=== PATIENT | male | born 1945 | race Caucasian/White ===

== ENCOUNTER 2020-06-25 12:54 | Emergency (ER) | payer MEDICARE ==
[~2020-06-25] VITALS: Ht 172.7 cm; Wt 135.2 kg
[~2020-06-25 12:54] MED LIST: AMLODIPINE BESYL5 MG PO; AMLODIPINE10 MG; AMLODIPINE10 MG PO; ANCEF1 GM/50 ML IV; ASPIRIN81 M1; CAPTOPRIL12.5 MG PO; CAPTOPRIL50 MG; CIPRO500 MG PO; COLACE100 MG PO; COREG12.5 MG PO; COREG6.25 MG PO; HYDROCHLOROTHIA25 MG; ISOSORBIDE30 MG; LASIX40 MG PO; LOVENOX40 MG/0.4 SC; Lovenox40 MG/0.4 PO; METFORMIN HCL1000 MG; MICRO-K10 MEQ PO; OXACILLIN IV; PERCOCET 325 MG1 TA3 PO; PERCOCET 325 MG1 TA4 PO; PERCOCET 325 MG1 TA8 IV; PRAVASTATIN SOD40 MG PO; PRILOSEC20 MG PO; Rimactane,Rifa300 MG PO; XARELTO10 PO
[2020-06-25 14:11] LABS: BASO # 0.1 10*3/uL (0.0-0.1); BASO % 0.6 % (0.0-1.0); EOS # 0.2 10*3/uL (0.0-0.4); EOS % 1.5 % (1.0-4.0); HEMATOCRIT 44.4 % (42.0-52.0); LYMPH % 8.5 % (27.0-41.0); MEAN CELL VOLUME 89.5 fl (80.0-94.0); MEAN CORPUSCULAR HGB CONC 32.4 g/dl (33.0-37.0); MEAN PLATELET VOLUME 9.9 fl (9.6-12.3); MONO % 8.6 % (3.0-9.0); NEUT # 9.4 10*3/uL (2.3-7.9); NEUT % 80.3 % (47.0-73.0); PLATELET COUNT AUTOMATED 298 10*3/uL (130-400); RED BLOOD COUNT 4.96 10*6/uL (4.50-5.90); RED CELL DISTRI WIDTH 13.6 % (0-14.5); WHITE BLOOD COUNT 11.7 10*3/uL (4.8-10.8)
[2020-06-25 14:21] LABS: INTERNATIONAL NORM RATIO 1.1 (2.0-3.5)
[2020-06-25 14:27] LABS: ALBUMIN 2.8 gm/dl (3.1-4.5); CREATININE 1.91 mg/dL (0.70-1.30); POTASSIUM 4.2 mmol/L (3.5-5.1); TOTAL PROTEIN 7.3 gm/dL (6.4-8.2)
[2020-06-25 14:28] LABS: TROPONIN I 0.016 ng/ml (<0.045)
[2020-06-25] MEDS ORDERED: CLINDAMYCIN HC300 MG PO (14:48)
== END 2020-06-25 16:10 | disposition home or self-care (01) ==
LOC: ED 12:54
PROVIDERS: Physician Assistant
DX: L03.116 Cellulitis of left lower limb (principal); L03.115 Cellulitis of right lower limb; I87.2 Venous insufficiency (chronic) (peripheral); Z79.899 Other long term (current) drug therapy

== ENCOUNTER 2020-10-01 13:43 | Inpatient (IN) | payer MEDICARE ==
[~2020-10-01] VITALS: Ht 172.7 cm; Wt 138.4 kg
[~2020-10-01 13:43] MED LIST changes: +CLINDAMYCIN HC300 MG PO
[2020-10-01 13:46] VITALS: BP 140/69
[2020-10-01 14:23] LABS: BASO # 0.1 10*3/uL (0.0-0.1); BASO % 0.7 % (0.0-1.0); EOS # 0.4 10*3/uL (0.0-0.4); EOS % 3.5 % (1.0-4.0); HEMATOCRIT 38.4 % (42.0-52.0); LYMPH # 1.2 10*3/uL (1.3-4.4); MEAN CELL VOLUME 88.5 fl (80.0-94.0); MEAN CORPUSCULAR HGB 27.9 pg (27.0-31.0); MEAN CORPUSCULAR HGB CONC 31.5 g/dl (33.0-37.0); MEAN PLATELET VOLUME 9.5 fl (9.6-12.3); MONO % 9.1 % (3.0-9.0); NEUT % 75.1 % (47.0-73.0); PLATELET COUNT AUTOMATED 357 10*3/uL (130-400); RED BLOOD COUNT 4.34 10*6/uL (4.50-5.90); RED CELL DISTRI WIDTH 14.4 % (0-14.5); WHITE BLOOD COUNT 10.6 10*3/uL (4.8-10.8)
[2020-10-01 14:34] LABS: ACT PARTIAL THROMBO TIME 34.3 SECONDS (20.0-32.1); INTERNATIONAL NORM RATIO 1.1 (2.0-3.5)
[2020-10-01 14:43] LABS: ALBUMIN 2.6 gm/dl (3.1-4.5); ALKALINE PHOSPHATASE 71 U/L (45-117); BUN 64 mg/dl (7-24); CHLORIDE 109 mmol/L (98-107); CREATININE 2.34 mg/dL (0.70-1.30); LIPASE 265 U/L (73-393); POTASSIUM 5.3 mmol/L (3.5-5.1); SGOT/AST 14 IU/L (3-35); SGPT/ALT 21 U/L (12-78); SODIUM 140 mmol/L (136-145); TOTAL PROTEIN 7.8 gm/dL (6.4-8.2)
[2020-10-01 14:56] LABS: TROPONIN I < 0.015 ng/ml (<0.045)
[2020-10-01 18:49] VITALS: BP 139/82
[2020-10-01 18:50] LABS: CREATININE 2.23 mg/dL (0.70-1.30); POTASSIUM 5.1 mmol/L (3.5-5.1)
[2020-10-01 19:09] LABS: BILIRUBIN Negative (Negative); BLOOD Negative (Negative); CLARITY Clear (Clear); COLOR Yellow (Yellow); GLUCOSE Negative (Negative); KETONE Negative (Negative); LEUKO ESTERASE 1+ (Negative); NITRITE Positive (Negative); PH 5.5 (4.5-8.0); SPECIFIC GRAVITY 1.015 (1.001-1.030); UROBILINOGEN 0.2 E.U./dl (0.0-1.0)
[2020-10-01 19:54] LABS: BACTERIA 1+; RBC 0-2 rbc/hpf (0-2)
[2020-10-01 20:06] VITALS: BP 138/68
[2020-10-01 20:43] VITALS: BP 141/48
[2020-10-01] MEDS ORDERED: OMEPRAZOLE MAGN20 MG PO (23:33)
[2020-10-01] MEDS ORDERED: LOSARTAN-HCTZ1 EAC1 PO (23:33)
[2020-10-01] MEDS ORDERED: OMEGA PO (23:34)
[2020-10-01] MEDS ORDERED: AMLODIPINE BESY10 MG PO (23:34)
[2020-10-01] MEDS ORDERED: ISO D3 2,000 U1 EACH PO (23:35)
[2020-10-01] MEDS ORDERED: CRESTOR20 M1 PO (23:36)
[2020-10-01] MEDS ORDERED: SUPER B COMPLE1 EAC1 PO (23:36)
[2020-10-01] MEDS ORDERED: XARE20MG PO (23:36)
[2020-10-01] MEDS ORDERED: COREG25 MG PO (23:40)
[2020-10-01] MEDS ORDERED: PRAVACHOL40 MG PO (23:40)
[2020-10-01] MEDS ORDERED: LASIX40 MG PO (23:41)
[2020-10-01] MEDS ORDERED: KEFLEX500 M1 PO (23:41)
[2020-10-01] MEDS ORDERED: RENAL VITAMIN0.8 MG PO (23:41)
[2020-10-01] MEDS ORDERED: LISINOPRIL2.5 MG PO (23:42)
[2020-10-02] VITALS: BP 124/55
[2020-10-02 06:31] LABS: BASO # 0.1 10*3/uL (0.0-0.1); BASO % 0.4 % (0.0-1.0); EOS # 0.4 10*3/uL (0.0-0.4); EOS % 3.2 % (1.0-4.0); HEMATOCRIT 36.5 % (42.0-52.0); LYMPH # 1.1 10*3/uL (1.3-4.4); LYMPH % 9.9 % (27.0-41.0); MEAN CORPUSCULAR HGB 27.7 pg (27.0-31.0); MEAN CORPUSCULAR HGB CONC 30.4 g/dl (33.0-37.0); MEAN PLATELET VOLUME 9.5 fl (9.6-12.3); MONO # 0.9 10*3/uL (0.1-1.0); MONO % 7.7 % (3.0-9.0); NEUT # 8.7 10*3/uL (2.3-7.9); NEUT % 78.4 % (47.0-73.0); PLATELET COUNT AUTOMATED 324 10*3/uL (130-400); RED BLOOD COUNT 4.01 10*6/uL (4.50-5.90); RED CELL DISTRI WIDTH 14.5 % (0-14.5); WHITE BLOOD COUNT 11.2 10*3/uL (4.8-10.8)
[2020-10-02 06:48] LABS: ALBUMIN 2.4 gm/dl (3.1-4.5); CREATININE 2.12 mg/dL (0.70-1.30); POTASSIUM 4.9 mmol/L (3.5-5.1)
[2020-10-02 06:57] LABS: THYROID STIM HORMONE (HS) 2.27 uIU/ml (0.358-4.75); TOTAL PROTEIN 6.8 gm/dL (6.4-8.2)
[2020-10-02 08:00] VITALS: BP 145/68
[2020-10-02 12:00] VITALS: BP 125/62
[2020-10-02 16:00] VITALS: BP 152/68
[2020-10-02 20:00] VITALS: BP 145/63
[2020-10-03] VITALS: BP 135/73
[2020-10-03 06:14] LABS: BASO # 0.1 10*3/uL (0.0-0.1); BASO % 0.5 % (0.0-1.0); EOS # 0.4 10*3/uL (0.0-0.4); EOS % 4.1 % (1.0-4.0); HEMATOCRIT 35.1 % (42.0-52.0); LYMPH # 1.3 10*3/uL (1.3-4.4); LYMPH % 13.5 % (27.0-41.0); MEAN CELL VOLUME 91.6 fl (80.0-94.0); MEAN CORPUSCULAR HGB 27.7 pg (27.0-31.0); MEAN CORPUSCULAR HGB CONC 30.2 g/dl (33.0-37.0); MEAN PLATELET VOLUME 9.5 fl (9.6-12.3); MONO # 0.9 10*3/uL (0.1-1.0); MONO % 9.8 % (3.0-9.0); NEUT # 6.7 10*3/uL (2.3-7.9); NEUT % 71.7 % (47.0-73.0); PLATELET COUNT AUTOMATED 292 10*3/uL (130-400); RED BLOOD COUNT 3.83 10*6/uL (4.50-5.90); RED CELL DISTRI WIDTH 14.6 % (0-14.5); WHITE BLOOD COUNT 9.4 10*3/uL (4.8-10.8)
[2020-10-03 06:29] LABS: POTASSIUM 4.9 mmol/L (3.5-5.1)
[2020-10-03 06:36] LABS: CREATININE 1.88 mg/dL (0.70-1.30)
[2020-10-03 08:00] VITALS: BP 148/57
[2020-10-03 12:00] VITALS: BP 162/75
[2020-10-03 16:00] VITALS: BP 155/72
[2020-10-03 20:00] VITALS: BP 177/78
[2020-10-04] VITALS: BP 160/76
[2020-10-04 06:28] LABS: BASO # 0.1 10*3/uL (0.0-0.1); BASO % 0.6 % (0.0-1.0); EOS # 0.4 10*3/uL (0.0-0.4); EOS % 5.1 % (1.0-4.0); HEMATOCRIT 35.3 % (42.0-52.0); LYMPH # 1.1 10*3/uL (1.3-4.4); LYMPH % 12.7 % (27.0-41.0); MEAN CORPUSCULAR HGB 27.8 pg (27.0-31.0); MEAN CORPUSCULAR HGB CONC 30.6 g/dl (33.0-37.0); MEAN PLATELET VOLUME 9.5 fl (9.6-12.3); MONO # 0.8 10*3/uL (0.1-1.0); NEUT # 6.2 10*3/uL (2.3-7.9); PLATELET COUNT AUTOMATED 312 10*3/uL (130-400); RED BLOOD COUNT 3.88 10*6/uL (4.50-5.90); RED CELL DISTRI WIDTH 14.3 % (0-14.5); WHITE BLOOD COUNT 8.6 10*3/uL (4.8-10.8)
[2020-10-04 07:02] LABS: CREATININE 1.7 mg/dL (0.70-1.30)
[2020-10-04 08:00] VITALS: BP 148/62
[2020-10-04 12:00] VITALS: BP 162/68
[2020-10-04 16:00] VITALS: BP 158/88
[2020-10-04] MEDS ORDERED: CEFEPIME1 GM/50 ML IV (17:01)
[2020-10-04 20:00] VITALS: BP 170/79
[2020-10-05] VITALS: BP 163/76
[2020-10-05 06:07] LABS: CREATININE 1.63 mg/dL (0.70-1.30); POTASSIUM 4.8 mmol/L (3.5-5.1)
[2020-10-05 08:00] VITALS: BP 153/84
[2020-10-05 12:00] VITALS: BP 139/67
[2020-10-05 16:00] VITALS: BP 149/70
[2020-10-05 20:00] VITALS: BP 159/69
[2020-10-06] VITALS: BP 152/62
[2020-10-06 08:00] VITALS: BP 163/74
[2020-10-06 12:00] VITALS: BP 138/62
== END 2020-10-06 14:07 | disposition home or self-care (01) | DRG 602 ==
LOC: ED 13:43 → 5E 15:36 → EDHOLD 15:36 → 4E 19:51 → 5E 10-02 14:35
PROVIDERS: Family Medicine; Nurse Practitioner Family; Student in an Organized Health Care Education/Training Program; ADMIT Internal Medicine; ATTEND Internal Medicine
PROC: 05HB33Z Insertion of Infusion Device into Right Basilic Vein, Percutaneous Approach (ICD-10-PCS; principal; 2020-10-05)
DX: L03.116 Cellulitis of left lower limb (principal); N17.0 Acute kidney failure with tubular necrosis; E43 Unspecified severe protein-calorie malnutrition; L97.829 Non-pressure chronic ulcer of other part of left lower leg with unspecified severity; L97.819 Non-pressure chronic ulcer of other part of right lower leg with unspecified severity; Z68.42 Body mass index [BMI] 45.0-49.9, adult; L03.115 Cellulitis of right lower limb; E78.5 Hyperlipidemia, unspecified; I10 Essential (primary) hypertension; D64.9 Anemia, unspecified; D72.9 Disorder of white blood cells, unspecified; D72.810 Lymphocytopenia; E87.5 Hyperkalemia; E87.8 Other disorders of electrolyte and fluid balance, not elsewhere classified; E83.41 Hypermagnesemia; I87.2 Venous insufficiency (chronic) (peripheral); J43.9 Emphysema, unspecified; E66.09 Other obesity due to excess calories; E11.65 Type 2 diabetes mellitus with hyperglycemia; E11.42 Type 2 diabetes mellitus with diabetic polyneuropathy; Z96.652 Presence of left artificial knee joint; I51.7 Cardiomegaly; B96.4 Proteus (mirabilis) (morganii) as the cause of diseases classified elsewhere; Z82.49 Family history of ischemic heart disease and other diseases of the circulatory system; B96.5 Pseudomonas (aeruginosa) (mallei) (pseudomallei) as the cause of diseases classified elsewhere; Z81.1 Family history of alcohol abuse and dependence; Z87.891 Personal history of nicotine dependence; Z79.899 Other long term (current) drug therapy

== ENCOUNTER 2022-03-21 18:11 | Inpatient (IN) | payer OTHER ==
[~2022-03-21] VITALS: Ht 172.7 cm; Wt 130.9 kg
[~2022-03-21 18:11] MED LIST changes: +AMLODIPINE BESY10 MG PO; +CEFEPIME1 GM/50 ML IV; +COREG25 MG PO; +CRESTOR20 M1 PO; +ISO D3 2,000 U1 EACH PO; +KEFLEX500 M1 PO; +LISINOPRIL2.5 MG PO; +LOSARTAN-HCTZ1 EAC1 PO; +OMEGA PO; +OMEPRAZOLE MAGN20 MG PO; +PRAVACHOL40 MG PO; +RENAL VITAMIN0.8 MG PO; +SUPER B COMPLE1 EAC1 PO; +XARE20MG PO
[2022-03-21 18:17] VITALS: BP 99/52
[2022-03-21 18:56] LABS: BASO % 0.2 % (0.0-1.0); EOS # 0.1 10*3/uL (0.0-0.4); EOS % 0.9 % (1.0-4.0); HEMATOCRIT 37.3 % (42.0-52.0); LYMPH # 0.6 10*3/uL (1.3-4.4); LYMPH % 4.1 % (27.0-41.0); MEAN CELL VOLUME 82.7 fl (80.0-94.0); MEAN CORPUSCULAR HGB 26.4 pg (27.0-31.0); MEAN CORPUSCULAR HGB CONC 31.9 g/dl (33.0-37.0); MEAN PLATELET VOLUME 9.7 fl (9.6-12.3); MONO % 6.6 % (3.0-9.0); NEUT # 13.4 10*3/uL (2.3-7.9); NEUT % 87.5 % (47.0-73.0); PLATELET COUNT AUTOMATED 367 10*3/uL (130-400); RED BLOOD COUNT 4.51 10*6/uL (4.50-5.90); RED CELL DISTRI WIDTH 16.6 % (0-14.5); WHITE BLOOD COUNT 15.4 10*3/uL (4.8-10.8)
[2022-03-21] MEDS ORDERED: ASPIRIN CHEWABL81 MG PO (19:01)
[2022-03-21] MEDS ORDERED: RENAL CAPS SOFTG1 MG PO (19:03)
[2022-03-21] MEDS ORDERED: JARDIANCE25 MG PO (19:03)
[2022-03-21] MEDS ORDERED: CARVEDILOL25 MG PO (19:03)
[2022-03-21 19:06] LABS: INTERNATIONAL NORM RATIO 1.1 (2.0-3.5)
[2022-03-21 19:11] LABS: CREATININE 4.01 mg/dL (0.70-1.30); TOTAL PROTEIN 8.7 gm/dL (6.4-8.2)
[2022-03-21 19:17] LABS: POTASSIUM 6.5 mmol/L (3.5-5.1)
[2022-03-21 20:03] VITALS: BP 111/58
[2022-03-21 20:55] VITALS: BP 120/50
[2022-03-21 21:10] VITALS: BP 112/66
[2022-03-22 02:12] LABS: CREATININE 3.78 mg/dL (0.70-1.30)
[2022-03-22 06:17] LABS: ACT PARTIAL THROMBO TIME 29.1 SECONDS (20.0-32.1); INTERNATIONAL NORM RATIO 1.1 (2.0-3.5)
[2022-03-22 06:22] LABS: BASO % 0.3 % (0.0-1.0); EOS # 0.1 10*3/uL (0.0-0.4); EOS % 0.9 % (1.0-4.0); HEMATOCRIT 36.7 % (42.0-52.0); LYMPH # 0.8 10*3/uL (1.3-4.4); MEAN CELL VOLUME 83.8 fl (80.0-94.0); MEAN CORPUSCULAR HGB 26.7 pg (27.0-31.0); MEAN CORPUSCULAR HGB CONC 31.9 g/dl (33.0-37.0); MEAN PLATELET VOLUME 9.6 fl (9.6-12.3); MONO # 1.2 10*3/uL (0.1-1.0); MONO % 7.9 % (3.0-9.0); NEUT # 13.1 10*3/uL (2.3-7.9); NEUT % 85.2 % (47.0-73.0); PLATELET COUNT AUTOMATED 324 10*3/uL (130-400); RED BLOOD COUNT 4.38 10*6/uL (4.50-5.90); RED CELL DISTRI WIDTH 16.4 % (0-14.5); WHITE BLOOD COUNT 15.4 10*3/uL (4.8-10.8)
[2022-03-22 06:26] LABS: POTASSIUM 5.3 mmol/L (3.5-5.1)
[2022-03-22 06:50] LABS: CREATININE 3.61 mg/dL (0.70-1.30); FREE T4 1.4 ng/dl (0.76-1.46); THYROID STIM HORMONE (HS) 1.2 uIU/ml (0.358-4.75); TOTAL PROTEIN 7.8 gm/dL (6.4-8.2)
[2022-03-22 08:00] VITALS: BP 140/98
[2022-03-22 12:00] VITALS: BP 127/60
[2022-03-22 16:30] VITALS: BP 110/54
[2022-03-22 20:00] VITALS: BP 114/62
[2022-03-22 22:29] LABS: BILIRUBIN Negative (Negative); BLOOD 2+ (Negative); CLARITY Clear (Clear); COLOR Yellow (Yellow); GLUCOSE 1+ (Negative); KETONE Negative (Negative); LEUKO ESTERASE 2+ (Negative); NITRITE Negative (Negative); SPECIFIC GRAVITY 1.015 (1.001-1.030); UROBILINOGEN 0.2 E.U./dl (0.0-1.0)
[2022-03-22 22:36] LABS: URINE CREATININE RANDOM 53.7 mg/dL
[2022-03-22 22:41] LABS: BACTERIA TRACE; EPITHELIAL CELLS 16-20; RBC 31-40 rbc/hpf (0-2); WBC 41-50 wbc/hpf (0-5)
[2022-03-23] VITALS: BP 136/63
[2022-03-23 06:08] LABS: BASO # 0.1 10*3/uL (0.0-0.1); BASO % 0.4 % (0.0-1.0); EOS # 0.4 10*3/uL (0.0-0.4); EOS % 2.9 % (1.0-4.0); HEMATOCRIT 35.9 % (42.0-52.0); LYMPH # 0.8 10*3/uL (1.3-4.4); LYMPH % 6.2 % (27.0-41.0); MEAN CELL VOLUME 82.9 fl (80.0-94.0); MEAN CORPUSCULAR HGB 26.8 pg (27.0-31.0); MEAN CORPUSCULAR HGB CONC 32.3 g/dl (33.0-37.0); MEAN PLATELET VOLUME 9.8 fl (9.6-12.3); MONO # 0.8 10*3/uL (0.1-1.0); MONO % 6.6 % (3.0-9.0); NEUT # 10.2 10*3/uL (2.3-7.9); NEUT % 83.2 % (47.0-73.0); PLATELET COUNT AUTOMATED 358 10*3/uL (130-400); RED BLOOD COUNT 4.33 10*6/uL (4.50-5.90); RED CELL DISTRI WIDTH 16.4 % (0-14.5); WHITE BLOOD COUNT 12.3 10*3/uL (4.8-10.8)
[2022-03-23 06:15] LABS: POTASSIUM 4.4 mmol/L (3.5-5.1)
[2022-03-23 06:30] LABS: CREATININE 2.86 mg/dL (0.70-1.30); TOTAL PROTEIN 7.8 gm/dL (6.4-8.2)
[2022-03-23 08:00] VITALS: BP 142/88
[2022-03-23 12:00] VITALS: BP 158/72
[2022-03-23] MEDS ORDERED: CEPHALEXIN500 M1 PO (15:30)
[2022-03-23] MEDS ORDERED: D3-200050 MCG PO (15:32)
[2022-03-23] MEDS ORDERED: PRAVASTATIN SOD20 MG PO (15:35)
[2022-03-23] MEDS ORDERED: DAILY-VITE TA400 MCG PO (15:36)
[2022-03-23 16:00] VITALS: BP 154/68
[2022-03-23 20:00] VITALS: BP 146/63
[2022-03-24] VITALS: BP 129/64
[2022-03-24 05:57] LABS: CREATININE 2.66 mg/dL (0.70-1.30); POTASSIUM 4.5 mmol/L (3.5-5.1)
[2022-03-24 06:13] LABS: BASO % 0.3 % (0.0-1.0); EOS # 0.3 10*3/uL (0.0-0.4); EOS % 2.2 % (1.0-4.0); HEMATOCRIT 35.3 % (42.0-52.0); LYMPH # 0.7 10*3/uL (1.3-4.4); MEAN CELL VOLUME 82.1 fl (80.0-94.0); MEAN CORPUSCULAR HGB 26.3 pg (27.0-31.0); MEAN PLATELET VOLUME 9.6 fl (9.6-12.3); MONO # 0.8 10*3/uL (0.1-1.0); MONO % 7.1 % (3.0-9.0); NEUT # 9.8 10*3/uL (2.3-7.9); NEUT % 83.7 % (47.0-73.0); PLATELET COUNT AUTOMATED 367 10*3/uL (130-400); RED CELL DISTRI WIDTH 16.6 % (0-14.5); WHITE BLOOD COUNT 11.8 10*3/uL (4.8-10.8)
[2022-03-24 08:00] VITALS: BP 152/62
[2022-03-24 12:00] VITALS: BP 127/52
[2022-03-24 16:00] VITALS: BP 109/56
[2022-03-24 20:00] VITALS: BP 115/55
[2022-03-25] VITALS: BP 124/60
[2022-03-25 05:20] LABS: CREATININE 2.81 mg/dL (0.70-1.30); POTASSIUM 3.7 mmol/L (3.5-5.1)
[2022-03-25 06:18] LABS: BASO # 0.1 10*3/uL (0.0-0.1); BASO % 0.4 % (0.0-1.0); EOS # 0.3 10*3/uL (0.0-0.4); EOS % 2.8 % (1.0-4.0); HEMATOCRIT 33.7 % (42.0-52.0); LYMPH # 0.8 10*3/uL (1.3-4.4); LYMPH % 7.3 % (27.0-41.0); MEAN CELL VOLUME 82.4 fl (80.0-94.0); MEAN CORPUSCULAR HGB 26.2 pg (27.0-31.0); MEAN CORPUSCULAR HGB CONC 31.8 g/dl (33.0-37.0); MEAN PLATELET VOLUME 9.8 fl (9.6-12.3); MONO # 0.8 10*3/uL (0.1-1.0); MONO % 7.1 % (3.0-9.0); NEUT # 9.1 10*3/uL (2.3-7.9); NEUT % 81.1 % (47.0-73.0); PLATELET COUNT AUTOMATED 366 10*3/uL (130-400); RED BLOOD COUNT 4.09 10*6/uL (4.50-5.90); RED CELL DISTRI WIDTH 16.4 % (0-14.5); WHITE BLOOD COUNT 11.3 10*3/uL (4.8-10.8)
[2022-03-25 08:00] VITALS: BP 130/58
[2022-03-25 12:00] VITALS: BP 130/61
[2022-03-25 16:00] VITALS: BP 113/53
[2022-03-25 20:00] VITALS: BP 151/86
[2022-03-26] VITALS: BP 151/86
[2022-03-26 04:00] VITALS: BP 146/82
[2022-03-26 06:18] LABS: CREATININE 3.09 mg/dL (0.70-1.30); POTASSIUM 3.3 mmol/L (3.5-5.1)
[2022-03-26 06:45] LABS: BASO # 0.1 10*3/uL (0.0-0.1); BASO % 0.5 % (0.0-1.0); EOS # 0.5 10*3/uL (0.0-0.4); HEMATOCRIT 35.2 % (42.0-52.0); LYMPH # 0.8 10*3/uL (1.3-4.4); MEAN CELL VOLUME 82.2 fl (80.0-94.0); MEAN CORPUSCULAR HGB 25.9 pg (27.0-31.0); MEAN CORPUSCULAR HGB CONC 31.5 g/dl (33.0-37.0); MEAN PLATELET VOLUME 9.6 fl (9.6-12.3); MONO # 0.9 10*3/uL (0.1-1.0); MONO % 7.5 % (3.0-9.0); NEUT # 9.5 10*3/uL (2.3-7.9); NEUT % 79.6 % (47.0-73.0); PLATELET COUNT AUTOMATED 372 10*3/uL (130-400); RED BLOOD COUNT 4.28 10*6/uL (4.50-5.90); RED CELL DISTRI WIDTH 16.5 % (0-14.5)
[2022-03-26 08:00] VITALS: BP 131/63
[2022-03-26 12:00] VITALS: BP 145/60
[2022-03-26 16:00] VITALS: BP 108/64
[2022-03-26 20:00] VITALS: BP 108/58
[2022-03-27] VITALS: BP 109/58
[2022-03-27 04:00] VITALS: BP 112/64
[2022-03-27 05:37] LABS: CREATININE 3.34 mg/dL (0.70-1.30); POTASSIUM 3.5 mmol/L (3.5-5.1)
[2022-03-27 06:29] LABS: BASO # 0.1 10*3/uL (0.0-0.1); BASO % 0.4 % (0.0-1.0); EOS # 0.6 10*3/uL (0.0-0.4); HEMATOCRIT 35.9 % (42.0-52.0); LYMPH # 0.8 10*3/uL (1.3-4.4); LYMPH % 5.9 % (27.0-41.0); MEAN CELL VOLUME 82.3 fl (80.0-94.0); MEAN CORPUSCULAR HGB 26.4 pg (27.0-31.0); MEAN PLATELET VOLUME 9.5 fl (9.6-12.3); NEUT # 11.1 10*3/uL (2.3-7.9); PLATELET COUNT AUTOMATED 392 10*3/uL (130-400); RED BLOOD COUNT 4.36 10*6/uL (4.50-5.90); RED CELL DISTRI WIDTH 16.4 % (0-14.5); WHITE BLOOD COUNT 13.8 10*3/uL (4.8-10.8)
[2022-03-27 08:00] VITALS: BP 130/64
[2022-03-27 12:00] VITALS: BP 117/61
[2022-03-27 16:00] VITALS: BP 114/58
[2022-03-27 20:00] VITALS: BP 109/49
[2022-03-28] VITALS: BP 141/65
[2022-03-28 06:16] LABS: HEMATOCRIT 36.2 % (42.0-52.0); MEAN CELL VOLUME 83.2 fl (80.0-94.0); MEAN CORPUSCULAR HGB 26.4 pg (27.0-31.0); MEAN CORPUSCULAR HGB CONC 31.8 g/dl (33.0-37.0); MEAN PLATELET VOLUME 9.5 fl (9.6-12.3); PLATELET COUNT AUTOMATED 429 10*3/uL (130-400); RED BLOOD COUNT 4.35 10*6/uL (4.50-5.90); RED CELL DISTRI WIDTH 16.5 % (0-14.5); WHITE BLOOD COUNT 16.3 10*3/uL (4.8-10.8)
[2022-03-28 06:26] LABS: MANUAL DIFF REFLEX YES
[2022-03-28 06:27] LABS: CREATININE 3.74 mg/dL (0.70-1.30); POTASSIUM 3.4 mmol/L (3.5-5.1)
[2022-03-28 07:35] LABS: BASOPHILS 1 % (0-1); PLATELET SUFFICIENCY HIGH (NORMAL); POLYCHROMASIA SLIGHT; TOTAL CELLS COUNTED 100 #CELLS
[2022-03-28 08:00] VITALS: BP 136/59
[2022-03-28 12:00] VITALS: BP 134/50
[2022-03-28 16:00] VITALS: BP 132/58
[2022-03-28 20:00] VITALS: BP 124/65
[2022-03-29] VITALS: BP 119/61
[2022-03-29 06:48] LABS: BASO % 0.3 % (0.0-1.0); EOS # 0.4 10*3/uL (0.0-0.4); EOS % 2.5 % (1.0-4.0); HEMATOCRIT 35.1 % (42.0-52.0); LYMPH # 0.8 10*3/uL (1.3-4.4); LYMPH % 5.2 % (27.0-41.0); MEAN CELL VOLUME 82.4 fl (80.0-94.0); MEAN CORPUSCULAR HGB 26.8 pg (27.0-31.0); MEAN CORPUSCULAR HGB CONC 32.5 g/dl (33.0-37.0); MEAN PLATELET VOLUME 9.8 fl (9.6-12.3); MONO % 6.3 % (3.0-9.0); NEUT # 13.1 10*3/uL (2.3-7.9); NEUT % 84.7 % (47.0-73.0); PLATELET COUNT AUTOMATED 390 10*3/uL (130-400); RED BLOOD COUNT 4.26 10*6/uL (4.50-5.90); RED CELL DISTRI WIDTH 16.9 % (0-14.5); WHITE BLOOD COUNT 15.4 10*3/uL (4.8-10.8)
[2022-03-29 07:10] LABS: POTASSIUM 3.3 mmol/L (3.5-5.1)
[2022-03-29 07:18] LABS: CREATININE 4.05 mg/dL (0.70-1.30)
[2022-03-29 08:00] VITALS: BP 125/60
[2022-03-29 12:00] VITALS: BP 117/55
[2022-03-29 16:00] VITALS: BP 111/61; BP 119/59
[2022-03-29 20:00] VITALS: BP 129/61
[2022-03-30] VITALS: BP 109/88
[2022-03-30 06:11] LABS: CREATININE 4.39 mg/dL (0.70-1.30); POTASSIUM 3.2 mmol/L (3.5-5.1)
[2022-03-30 06:27] LABS: BASO # 0.1 10*3/uL (0.0-0.1); BASO % 0.4 % (0.0-1.0); EOS # 0.5 10*3/uL (0.0-0.4); EOS % 3.2 % (1.0-4.0); HEMATOCRIT 33.1 % (42.0-52.0); LYMPH # 0.8 10*3/uL (1.3-4.4); LYMPH % 5.4 % (27.0-41.0); MEAN CELL VOLUME 82.8 fl (80.0-94.0); MEAN CORPUSCULAR HGB 26.8 pg (27.0-31.0); MEAN CORPUSCULAR HGB CONC 32.3 g/dl (33.0-37.0); MEAN PLATELET VOLUME 9.9 fl (9.6-12.3); MONO # 0.9 10*3/uL (0.1-1.0); MONO % 6.4 % (3.0-9.0); NEUT # 12.2 10*3/uL (2.3-7.9); NEUT % 83.8 % (47.0-73.0); PLATELET COUNT AUTOMATED 361 10*3/uL (130-400); RED CELL DISTRI WIDTH 16.6 % (0-14.5); WHITE BLOOD COUNT 14.6 10*3/uL (4.8-10.8)
[2022-03-30 08:00] VITALS: BP 127/58
[2022-03-30 12:00] VITALS: BP 120/59
[2022-03-30 16:00] VITALS: BP 112/83
[2022-03-30 20:00] VITALS: BP 132/62
[2022-03-31] VITALS: BP 136/53
[2022-03-31 06:06] LABS: CREATININE 4.22 mg/dL (0.70-1.30); POTASSIUM 3.2 mmol/L (3.5-5.1); TOTAL PROTEIN 6.5 gm/dL (6.4-8.2)
[2022-03-31 06:18] LABS: BASO % 0.3 % (0.0-1.0); EOS # 0.5 10*3/uL (0.0-0.4); HEMATOCRIT 31.3 % (42.0-52.0); LYMPH # 0.6 10*3/uL (1.3-4.4); LYMPH % 5.1 % (27.0-41.0); MEAN CELL VOLUME 81.5 fl (80.0-94.0); MEAN CORPUSCULAR HGB 26.6 pg (27.0-31.0); MEAN CORPUSCULAR HGB CONC 32.6 g/dl (33.0-37.0); MEAN PLATELET VOLUME 9.8 fl (9.6-12.3); MONO # 0.8 10*3/uL (0.1-1.0); MONO % 6.3 % (3.0-9.0); NEUT % 83.6 % (47.0-73.0); PLATELET COUNT AUTOMATED 357 10*3/uL (130-400); RED BLOOD COUNT 3.84 10*6/uL (4.50-5.90); RED CELL DISTRI WIDTH 16.9 % (0-14.5)
[2022-03-31 08:00] VITALS: BP 122/51
[2022-03-31 12:00] VITALS: BP 119/45
[2022-03-31 16:00] VITALS: BP 111/52
[2022-03-31 20:00] VITALS: BP 111/45
[2022-04-01] VITALS: BP 128/55
[2022-04-01 05:39] LABS: CREATININE 3.77 mg/dL (0.70-1.30); POTASSIUM 3.4 mmol/L (3.5-5.1)
[2022-04-01 05:41] LABS: TOTAL PROTEIN 6.6 gm/dL (6.4-8.2)
[2022-04-01 06:07] LABS: BASO % 0.3 % (0.0-1.0); EOS # 0.4 10*3/uL (0.0-0.4); EOS % 3.6 % (1.0-4.0); LYMPH # 0.8 10*3/uL (1.3-4.4); LYMPH % 6.6 % (27.0-41.0); MEAN CELL VOLUME 82.4 fl (80.0-94.0); MEAN CORPUSCULAR HGB 26.4 pg (27.0-31.0); MEAN CORPUSCULAR HGB CONC 32.1 g/dl (33.0-37.0); MEAN PLATELET VOLUME 10.2 fl (9.6-12.3); MONO # 0.8 10*3/uL (0.1-1.0); MONO % 6.8 % (3.0-9.0); NEUT # 9.3 10*3/uL (2.3-7.9); PLATELET COUNT AUTOMATED 397 10*3/uL (130-400); RED BLOOD COUNT 3.52 10*6/uL (4.50-5.90); WHITE BLOOD COUNT 11.4 10*3/uL (4.8-10.8)
[2022-04-01 08:00] VITALS: BP 117/55
[2022-04-01 12:00] VITALS: BP 120/52
[2022-04-01 16:00] VITALS: BP 115/50
[2022-04-01 20:00] VITALS: BP 112/41
[2022-04-02] VITALS: BP 115/44
[2022-04-02 05:26] LABS: CREATININE 3.05 mg/dL (0.70-1.30); POTASSIUM 3.2 mmol/L (3.5-5.1)
[2022-04-02 06:06] LABS: BASO # 0.1 10*3/uL (0.0-0.1); BASO % 0.5 % (0.0-1.0); EOS # 0.4 10*3/uL (0.0-0.4); EOS % 4.6 % (1.0-4.0); HEMATOCRIT 29.1 % (42.0-52.0); LYMPH # 0.8 10*3/uL (1.3-4.4); LYMPH % 8.2 % (27.0-41.0); MEAN CELL VOLUME 82.9 fl (80.0-94.0); MEAN CORPUSCULAR HGB 26.5 pg (27.0-31.0); MEAN PLATELET VOLUME 10.1 fl (9.6-12.3); MONO # 0.8 10*3/uL (0.1-1.0); MONO % 8.4 % (3.0-9.0); NEUT # 7.3 10*3/uL (2.3-7.9); NEUT % 77.7 % (47.0-73.0); PLATELET COUNT AUTOMATED 389 10*3/uL (130-400); RED BLOOD COUNT 3.51 10*6/uL (4.50-5.90); RED CELL DISTRI WIDTH 17.1 % (0-14.5); WHITE BLOOD COUNT 9.4 10*3/uL (4.8-10.8)
[2022-04-02 08:00] VITALS: BP 132/58
[2022-04-02 12:00] VITALS: BP 133/61
[2022-04-02 16:00] VITALS: BP 117/47
[2022-04-02 20:00] VITALS: BP 148/60
[2022-04-03] VITALS: BP 150/65
[2022-04-03 06:01] LABS: CREATININE 2.52 mg/dL (0.70-1.30); POTASSIUM 3.4 mmol/L (3.5-5.1)
[2022-04-03 06:16] LABS: BASO % 0.4 % (0.0-1.0); EOS # 0.4 10*3/uL (0.0-0.4); EOS % 4.5 % (1.0-4.0); HEMATOCRIT 29.9 % (42.0-52.0); LYMPH # 0.8 10*3/uL (1.3-4.4); LYMPH % 8.8 % (27.0-41.0); MEAN CELL VOLUME 82.6 fl (80.0-94.0); MEAN CORPUSCULAR HGB 26.8 pg (27.0-31.0); MEAN CORPUSCULAR HGB CONC 32.4 g/dl (33.0-37.0); MONO # 0.8 10*3/uL (0.1-1.0); MONO % 8.8 % (3.0-9.0); NEUT # 7.4 10*3/uL (2.3-7.9); PLATELET COUNT AUTOMATED 413 10*3/uL (130-400); RED BLOOD COUNT 3.62 10*6/uL (4.50-5.90); RED CELL DISTRI WIDTH 17.2 % (0-14.5); WHITE BLOOD COUNT 9.6 10*3/uL (4.8-10.8)
[2022-04-03 08:00] VITALS: BP 151/73
[2022-04-03 12:00] VITALS: BP 153/69
[2022-04-03 16:00] VITALS: BP 139/53
[2022-04-03 20:00] VITALS: BP 127/82
[2022-04-04] VITALS: BP 131/51
[2022-04-04 06:02] LABS: CREATININE 2.23 mg/dL (0.70-1.30); POTASSIUM 3.7 mmol/L (3.5-5.1)
[2022-04-04 06:29] LABS: BASO # 0.1 10*3/uL (0.0-0.1); BASO % 0.5 % (0.0-1.0); EOS # 0.4 10*3/uL (0.0-0.4); EOS % 4.4 % (1.0-4.0); HEMATOCRIT 31.6 % (42.0-52.0); LYMPH # 1.1 10*3/uL (1.3-4.4); LYMPH % 11.6 % (27.0-41.0); MEAN CELL VOLUME 83.2 fl (80.0-94.0); MEAN CORPUSCULAR HGB 26.3 pg (27.0-31.0); MEAN CORPUSCULAR HGB CONC 31.6 g/dl (33.0-37.0); MEAN PLATELET VOLUME 9.9 fl (9.6-12.3); MONO # 0.8 10*3/uL (0.1-1.0); MONO % 8.6 % (3.0-9.0); NEUT # 6.9 10*3/uL (2.3-7.9); NEUT % 74.4 % (47.0-73.0); PLATELET COUNT AUTOMATED 430 10*3/uL (130-400); RED CELL DISTRI WIDTH 17.7 % (0-14.5); WHITE BLOOD COUNT 9.3 10*3/uL (4.8-10.8)
[2022-04-04 08:00] VITALS: BP 132/52
[2022-04-04 12:00] VITALS: BP 129/59
[2022-04-04 16:00] VITALS: BP 159/68
[2022-04-04 20:00] VITALS: BP 144/64
[2022-04-05] VITALS: BP 151/71
[2022-04-05 06:19] LABS: BASO # 0.1 10*3/uL (0.0-0.1); BASO % 0.6 % (0.0-1.0); EOS # 0.4 10*3/uL (0.0-0.4); EOS % 4.3 % (1.0-4.0); HEMATOCRIT 31.2 % (42.0-52.0); LYMPH # 1.2 10*3/uL (1.3-4.4); LYMPH % 11.4 % (27.0-41.0); MEAN CELL VOLUME 83.6 fl (80.0-94.0); MEAN CORPUSCULAR HGB 26.8 pg (27.0-31.0); MEAN CORPUSCULAR HGB CONC 32.1 g/dl (33.0-37.0); MEAN PLATELET VOLUME 9.6 fl (9.6-12.3); MONO # 0.8 10*3/uL (0.1-1.0); MONO % 7.7 % (3.0-9.0); NEUT # 7.7 10*3/uL (2.3-7.9); NEUT % 75.4 % (47.0-73.0); PLATELET COUNT AUTOMATED 416 10*3/uL (130-400); RED BLOOD COUNT 3.73 10*6/uL (4.50-5.90); WHITE BLOOD COUNT 10.2 10*3/uL (4.8-10.8)
[2022-04-05 06:36] LABS: POTASSIUM 3.7 mmol/L (3.5-5.1)
[2022-04-05 06:49] LABS: CREATININE 1.82 mg/dL (0.70-1.30)
[2022-04-05 08:00] VITALS: BP 134/60
[2022-04-05] MEDS ORDERED: Humalog SQ (11:28)
[2022-04-05] MEDS ORDERED: CIPRO500 MG PO (11:28)
[2022-04-05] MEDS ORDERED: ELIQUIS5 M1 PO (11:28)
[2022-04-05] MEDS ORDERED: SODIUM BICARBO650 MG PO (11:28)
[2022-04-05] MEDS ORDERED: Klor-Con/Ef25 MEQ PO (11:28)
== END 2022-04-05 14:54 | DRG 602 ==
LOC: ED 18:11 → 4E 19:47 → EDHOLD 19:47 → 4E 21:00
PROVIDERS: Hospitalist; Internal Medicine; Internal Medicine Nephrology; Physician Assistant; Registered Nurse; ADMIT Internal Medicine; ATTEND Internal Medicine
DX: L03.115 Cellulitis of right lower limb (principal); N17.0 Acute kidney failure with tubular necrosis; E43 Unspecified severe protein-calorie malnutrition; L97.809 Non-pressure chronic ulcer of other part of unspecified lower leg with unspecified severity; E87.1 Hypo-osmolality and hyponatremia; L03.90 Cellulitis, unspecified; I82.412 Acute embolism and thrombosis of left femoral vein; I82.432 Acute embolism and thrombosis of left popliteal vein; N18.4 Chronic kidney disease, stage 4 (severe); Z68.41 Body mass index [BMI] 40.0-44.9, adult; I87.8 Other specified disorders of veins; B35.1 Tinea unguium; E11.621 Type 2 diabetes mellitus with foot ulcer; E11.51 Type 2 diabetes mellitus with diabetic peripheral angiopathy without gangrene; E11.65 Type 2 diabetes mellitus with hyperglycemia; J43.9 Emphysema, unspecified; Z20.822 Contact with and (suspected) exposure to COVID-19; Z66 Do not resuscitate; E66.01 Morbid (severe) obesity due to excess calories; I87.2 Venous insufficiency (chronic) (peripheral); E78.2 Mixed hyperlipidemia; D64.9 Anemia, unspecified; E87.8 Other disorders of electrolyte and fluid balance, not elsewhere classified; E83.41 Hypermagnesemia; R74.01 Elevation of levels of liver transaminase levels; Z88.1 Allergy status to other antibiotic agents; Z79.82 Long term (current) use of aspirin; Z87.891 Personal history of nicotine dependence; Z79.899 Other long term (current) drug therapy

== ENCOUNTER 2022-08-13 00:03 | Emergency (ER) | payer OTHER ==
[~2022-08-13] VITALS: Ht 177.8 cm; Wt 127.0 kg
[~2022-08-13 00:03] MED LIST changes: +ASPIRIN CHEWABL81 MG PO; +CARVEDILOL25 MG PO; +CEPHALEXIN500 M1 PO; +D3-200050 MCG PO; +DAILY-VITE TA400 MCG PO; +ELIQUIS5 M1 PO; +Humalog SQ; +JARDIANCE25 MG PO; +Klor-Con/Ef25 MEQ PO; +PRAVASTATIN SOD20 MG PO; +RENAL CAPS SOFTG1 MG PO; +SODIUM BICARBO650 MG PO
== END 2022-08-13 04:12 ==
LOC: ED 00:03
DX: Z48.00 Encounter for change or removal of nonsurgical wound dressing (principal); E66.01 Morbid (severe) obesity due to excess calories; I10 Essential (primary) hypertension; E78.5 Hyperlipidemia, unspecified; Z79.899 Other long term (current) drug therapy; Z79.82 Long term (current) use of aspirin

== ENCOUNTER 2022-08-22 14:38 | Emergency (ER) | payer OTHER, MEDICAID ==
[2022-08-22 15:42] LABS: BASO # 0.1 10*3/uL (0.0-0.1); BASO % 0.6 % (0.0-1.0); EOS # 0.6 10*3/uL (0.0-0.4); HEMATOCRIT 38.1 % (42.0-52.0); LYMPH # 0.8 10*3/uL (1.3-4.4); LYMPH % 6.5 % (27.0-41.0); MEAN CORPUSCULAR HGB 26.1 pg (27.0-31.0); MEAN CORPUSCULAR HGB CONC 31.5 g/dl (33.0-37.0); MEAN PLATELET VOLUME 9.5 fl (9.6-12.3); MONO % 7.8 % (3.0-9.0); NEUT # 10.1 10*3/uL (2.3-7.9); NEUT % 79.5 % (47.0-73.0); PLATELET COUNT AUTOMATED 373 10*3/uL (130-400); RED BLOOD COUNT 4.59 10*6/uL (4.50-5.90); RED CELL DISTRI WIDTH 15.9 % (0-14.5); WHITE BLOOD COUNT 12.7 10*3/uL (4.8-10.8)
[2022-08-22 15:52] LABS: ACT PARTIAL THROMBO TIME 35.4 SECONDS (20.0-32.1); INTERNATIONAL NORM RATIO 1.1 (2.0-3.5)
[2022-08-22 16:06] LABS: CREATININE 2.16 mg/dL (0.70-1.30); POTASSIUM 4.7 mmol/L (3.5-5.1)
[2022-08-22 16:08] LABS: TOTAL PROTEIN 7.5 gm/dL (6.4-8.2)
== END 2022-08-22 16:35 | disposition short-term general hospital (02) ==
LOC: ED 14:38
PROVIDERS: Emergency Medicine
DX: N50.89 Other specified disorders of the male genital organs (principal); Z79.899 Other long term (current) drug therapy; Z87.891 Personal history of nicotine dependence; Z98.890 Other specified postprocedural states

== ENCOUNTER → 2023-05-07 | Outpatient (CLI) | payer MEDICARE | END | disposition home or self-care (01) | LOC: US 13:48 | PROVIDERS: ATTEND Urology | DX: N28.89 Other specified disorders of kidney and ureter (principal) ==

== ENCOUNTER 2023-06-29 19:18 | Inpatient (IN) | payer OTHER ==
[~2023-06-29] VITALS: Ht 172.7 cm; Wt 142.5 kg
[2023-06-29 19:07] VITALS: BP 91/47
[~2023-06-29 19:18] MED LIST changes: +ATARAX,VISTARIL50 MG PO; +BISACODYL10 MG R; +BUMETANIDE1 MG PO; +CELEXA10 MG PO; +CLONIDINE HCL0.1 MG PO; +HYDRALAZINE HC100 MG PO; +LOKELMA10 GM PO; +LOPERAMIDE HCL2 MG PO; +MILK OF MA400 MG/51 PO; +PROVERA10 MG PO; +TRAMADOL HCL50 MG PO
[2023-06-29 23:39] VITALS: BP 103/51
[2023-06-30 05:13] VITALS: BP 93/38
[2023-06-30 08:00] VITALS: BP 91/44
[2023-06-30 12:00] VITALS: BP 89/45
[2023-06-30 16:00] VITALS: BP 68/33
[2023-06-30 20:00] VITALS: BP 79/37
[2023-07-01] VITALS: BP 84/58
[2023-07-01 08:00] VITALS: BP 72/38
[2023-07-01 16:00] VITALS: BP 96/50
[2023-07-02 20:00] VITALS: BP 60/34
== END 2023-07-03 00:59 | DRG 871 ==
LOC: 4E 19:18
PROVIDERS: ADMIT Family Medicine; ATTEND Family Medicine
DX: A41.9 Sepsis, unspecified organism (principal); J18.9 Pneumonia, unspecified organism; N17.0 Acute kidney failure with tubular necrosis; E87.20 Acidosis, unspecified; N17.9 Acute kidney failure, unspecified; E87.1 Hypo-osmolality and hyponatremia; L03.115 Cellulitis of right lower limb; R65.20 Severe sepsis without septic shock; D50.9 Iron deficiency anemia, unspecified; N18.9 Chronic kidney disease, unspecified; S81.802A Unspecified open wound, left lower leg, initial encounter; S81.801A Unspecified open wound, right lower leg, initial encounter; I95.9 Hypotension, unspecified; T68.XXXA Hypothermia, initial encounter; E78.5 Hyperlipidemia, unspecified; E11.69 Type 2 diabetes mellitus with other specified complication; Z51.5 Encounter for palliative care; Z66 Do not resuscitate; X58.XXXA Exposure to other specified factors, initial encounter; Y93.89 Activity, other specified; Y92.89 Other specified places as the place of occurrence of the external cause; Y99.8 Other external cause status